=== PATIENT | male | born 2000 | race Caucasian/White ===

== ENCOUNTER 2025-01-14 14:59 | Emergency (ER) | payer OTHER, SELFPAY ==
[2025-01-14 15:03] VITALS: BP 165/74; PULSE 66; RESP 18; TEMP 36.6; O2SAT 96
[2025-01-14 15:07] VITALS: BP 165/74; PULSE 66; RESP 18; TEMP 36.6; O2SAT 96
--- NOTE | 2025-01-14 15:16 | ED.GENADUL_ITS ---
Discharge Plan Disposition Patient Disposition: Home Condition: Stable Discharge Details Clinical Impression: Moderate persistent asthma ED Provider: Candida Moran Home Meds and New Rx's Prescriptions: New prednisone 20 mg tablet 40 mg PO DAILY 4 Days Qty: 8 0RF Rx Instructions: Start 01/14/2025 albuterol sulfate 90 mcg/actuation HFA aerosol inhaler 2 puff inhalation Q6H PRNQty: 6.7 0RF No Action montelukast 10 mg tablet 10 mg PO DAILY albuterol 90 mcg/actuation aerosol 90 mcg inhalation DAILY Discharge Instructions Instructions: Asthma, Adult ED Additional Instructions: You were seen in the emergency department today for evaluation of shortness of breath and asthma exacerbation. In our department you do full physical examination performed, and we did provide you with a new albuterol inhaler and spacer as well as your first dose of steroids. I sent a prescription for the remaining 4 days of steroids as well as a refill on your inhaler to your pharmacy. Please take the steroids for all 5 days and then stop to reduce inflammation associated with your asthma exacerbation. You can use your albuterol inhaler as needed for shortness of breath or wheezing. Please keep your appointment scheduled with your primary care provider in March, and return to the emergency department sooner if you have a sudden change or worsening of your shortness of breath, develop a fever, cough, or any other symptoms that cause you concern. Thank you for allowing us to be part of your care. HPI General Mode of arrival: ambulatory . Date/Time Provider Initiated Documentation: 01/14/25 15:01 . Limitations to Documentation: no limitations . Information obtained by: patient and old records reviewed . HPI Narrative: HPI: This is a 24-year-old male patient with a history of asthma, allergies, presenting for evaluation of shortness of breath. He reports that he is up here helping a family/friend with barn cleaned out, and feels like he is having an asthma exacerbation in the setting of dust and hay. He reports that he does typically get worse allergies with a change of the seasons, has been taking his [id number]-yqujtvn allergy medication as prescribed. The patient reports that he typically uses his albuterol inhaler at night, and does use it every day. Today he has needed to use it much more frequently, and it ran out after approximately 4 puffs. He feels like his wheezing and shortness of breath has persisted in the absence of this medication. Yesterday the patient was in his normal state of health. He reports that he has not had any recent fevers, upper respiratory symptoms such as runny or stuffy nose, sore throat, or cough. He has no pain, no recent sick contacts. Exam: Gen: Awake and alert, in no apparent distress HEENT: Non-icteric sclera Neck: Supple Lungs: No apparent respiratory distress, normal respiratory effort. No tachypnea, trace expiratory wheezes most audible in the bases. CV: Appears well perfused, heart with regular rate and rhythm, strong distal pulses and no murmurs auscultated Abdomen: Non-distended MSK: Moves 4 extremities without apparent limitation in ROM. No peripheral edema appreciated Skin: Visualized skin without rashes, cyanosis. Neuro: Normal Gait, no obvious focal deficits or facial asymmetry. Speaks in full, clear sentences. Psych: Appropriate for situation. MDM: This is a 24-year-old male patient presenting for evaluation of shortness of breath in the setting of running out of his albuterol. My differential includes but is not limited to asthma exacerbation, allergic reaction, specifically to environmental allergies, I see no evidence of my physical examination for anaphylaxis at this time. I feel reassured in this patient with no fever, URI symptoms, or cough against infectious etiologies such as URI, bronchitis, pneumonia. No history of heart failure, evidence of fluid overload. The patient is speaking in full sentences, protecting his airway and oxygenating well on room air. ED Course: We did shared decision-making conversation at this time I do not see any indication to proceed with advanced imaging or laboratory studies. I will provide the patient with a metered-dose inhaler and spacer, and feel that he would benefit from a steroid burst given his wheezing. His first dose of prednisone was provided here, and a prescription for same as well as a refill of his albuterol inhaler was sent to his pharmacy. He has a scheduled primary care follow-up appointment at [facility] [place] and is returning home to [place] tomorrow. At this time, the patient has had a full medical evaluation and is safe for discharge to home. They are hemodynamically stable, ambulatory, and tolerating PO. They are understanding of the follow-up plan and return precautions. They left our facility without incident. Candida Moran MD Related Data Home Medications ?Medication ?Instructions ?Recorded ?Confirmed albuterol 90 mcg/actuation aerosol 90 mcg inhalation DAILY 01/14/25 01/14/25 inhaler albuterol sulfate 90 mcg/actuation 2 puff inhalation Q6H PRN #6.7 01/14/25 aerosol inhaler grams montelukast 10 mg tablet 10 mg PO DAILY 01/14/25 01/14/25 prednisone 20 mg tablet 40 mg (2 x 20 mg) PO DAILY 4 days 01/14/25 #8 tabs Previous Rx's ?Medication ?Instructions ?Recorded albuterol sulfate 90 mcg/actuation 2 puff inhalation Q6H PRN #6.7 01/14/25 aerosol inhaler grams prednisone 20 mg tablet 40 mg (2 x 20 mg) PO DAILY 4 days 01/14/25 #8 tabs Allergies Allergy/AdvReac Type Severity Reaction Status Date / Time No Known Allergies Allergy Unverified 01/14/25 15:08 General Stated Complaint: RespSymp AICHA: 4 Course Vital Signs Vital signs: Vital Signs Temperature 36.6 C 01/14/25 15:03 Pulse 66 01/14/25 15:03 Respiratory Rate 18 01/14/25 15:03 Blood Pressure 165/74 H 01/14/25 15:03 Pulse Oximetry 96 01/14/25 15:03 Temperature 36.6 C 01/14/25 15:07 Pulse 66 01/14/25 15:07 Respiratory Rate 18 01/14/25 15:07 Blood Pressure 165/74 H 01/14/25 15:07 Pulse Oximetry 96 01/14/25 15:07 Pain Level 0 01/14/25 15:07 Medical Decision Making Quality:SDOH Health Related Social Needs: No Data to Display PFSH All Active Problems (Updated 01/14/25 @ 15:17 by Candida Moran MD) Moderate persistent asthma (Acute) Social History Smoking/Tobacco Use Status: Never Smoking risk assessment performed?: Yes Alcohol Intake: current Alcohol Intake frequency: holidays/special occasions only Drug use: Never Substance use type: does not use Housing: apartment Do you feel safe at home: Yes Do you feel safe in your relationship?: Yes
[2025-01-14] MEDS: predniSONE 20 MG TAB 40 MG PO (15:19)
[2025-01-14] MEDS: Albuterol HFA 8 GM 60 PUFF INH IH (15:19)
== END 2025-01-14 15:23 | disposition home or self-care (01) ==
LOC: ER 15:41
PROVIDERS: Emergency Provider Emergency Medicine; PCP Internal Medicine
DX: J45.40 Moderate persistent asthma, uncomplicated (principal)
CPT/HCPCS: 99283; J7512